=== PATIENT | female | born 1955 | race Caucasian/White ===

== ENCOUNTER 2021-01-22 11:23 | Observation (INO) ==
[2021-01-22] MEDS ORDERED: ONDANSETRON 4 MG/2 ML VIAL IV STA (11:42)
[2021-01-22] MEDS ORDERED: SODIUM CHLORIDE 0.9% 1,000 ML IV STA (11:42)
[2021-01-22 13:05] LABS: Basophils % 0.2 % (0.0-0.8); Eosinophils % 0.2 % (0.00-10.9); Immature Granulocytes % 0.4 %; Immature Granulocytes Absolute 0.05 #; Lymphocytes # 1.1 10*3/uL (1.4-4.0); Lymphocytes % 8.6 % (21.3-54.2); Mean Corpuscular HGB Conc 34.8 GM/DL (32-36); Mean Corpuscular Volume 93.1 FL (87-102); Mean Platelet Volume 9.3 FL (9.6-12.0); Monocytes % 6.5 % (1.7-12.7); Neutrophils % 84.1 % (38.7-73.9); Platelet Count 326 T/CUMM (130-400); Red Blood Count 4.94 MC/CUMM (3.8-5.5); Red Cell Distribution Width 13.8 % (9.3-17.3); White Blood Count 13.2 T/CUMM (4-12)
[2021-01-22 13:12] LABS: Bilirubin,Urine Negative (Negative); Blood, Urine Negative (Negative); Glucose,Urine (UA) Negative (Negative); Ketones,Urine Negative (Negative); Nitrite,Urine Negative (Negative); Protein,Urine Negative; RBC,Urine 1 /HPF (0-4); Squamous Epithelial Cell,Urine Occasional /HPF (0-10); Urine Appearance CLEAR (Clear); Urine Color Straw (Yellow); Urine Specific Gravity 1.006 (1.001-1.035); Urine Urobilinogen < 2.0 EU/DL (0.2-1.0)
[2021-01-22 13:23] LABS: Albumin 3.5 G/DL (3.4-5.0); Bilirubin,Total 0.6 MG/DL (0.20-1.00); Calcium 9.3 MG/DL (8.5-10.1); Osmolality,Calculated 264.2 MOS/KG (273-304); Potassium 2.9 MMOL/L (3.5-5.1)
[2021-01-22] MEDS ORDERED: HYDROmorphone 2 MG/1 ML VIAL IV STA ×2 (13:25→13:33)
[2021-01-22] MEDS ORDERED: PIPERACILLIN/TAZOBACTAM 3,375 MG in SODIUM CHLORIDE 0.9% 100 ML IV STA (13:33)
[2021-01-22] MEDS ORDERED: BISACODYL 5 MG TABLET PO PRN (13:50)
[2021-01-22] MEDS ORDERED: HYDROmorphone 2 MG/1 ML VIAL IV PRN ×2 (13:50)
[2021-01-22] MEDS ORDERED: ACETAMINOPHEN 325 MG TABLET PO PRN (13:50)
[2021-01-22] MEDS ORDERED: KETOROLAC 15 MG/1 ML VIAL IV PRN (13:50)
[2021-01-22] MEDS ORDERED: ONDANSETRON 4 MG/2 ML VIAL IV PRN (13:50)
[2021-01-22] MEDS ORDERED: ALBUTEROL/IPRATROPIUM 3 ML NEB RESP TX PRN (13:50)
[2021-01-22] MEDS ORDERED: LIDOCAINE 1%/EPI INJ 20 ML VIAL ONE (14:11)
[2021-01-22] MEDS ORDERED: TISSUE ADHESIVE 1 EACH APPLICATOR TOP ONE (14:11)
[2021-01-22] MEDS ORDERED: BUPIVACAINE MPF 0.25% 30 ML VIAL ONE (14:11)
[2021-01-22] MEDS ORDERED: fentaNYL 100 MCG/2 ML VIAL ONE (14:20)
[2021-01-22] MEDS ORDERED: propofoL 200 MG/20 ML VIAL IV ONE (14:21)
[2021-01-22] MEDS ORDERED: MIDAZOLAM 2 MG/2 ML VIAL ONE (14:21)
[2021-01-22] MEDS ORDERED: ROCURONIUM 50 MG/5 ML VIAL IV ONE (14:21)
[2021-01-22] MEDS ORDERED: SUCCINYLCHOLINE 200 MG/10 ML VIAL ONE (14:21)
[2021-01-22] MEDS ORDERED: LIDOCAINE 2% 5 ML VIAL ONE (14:21)
[2021-01-22] MEDS ORDERED: PHENYLEPHRINE 1 MG/10 ML SYRINGE IV ONE (14:52)
[2021-01-22] MEDS ORDERED: GLYCOPYRROLATE 0.4 MG/2 ML VIAL ONE (15:16)
[2021-01-22] MEDS ORDERED: LACTATED RINGERS 1,000 ML IV ONE (15:20)
[2021-01-22] MEDS ORDERED: NEOSTIGMINE 10 MG/10 ML VIAL ONE (15:31)
[2021-01-22] MEDS: HYDROmorphone 2 MG/1 ML VIAL IV PRN ×2 (15:53→16:00)
[2021-01-22] MEDS: LACTATED RINGERS 1,000 ML IV SCH ×2 (17:47→23:10)
[2021-01-22] MEDS: ALBUTEROL/IPRATROPIUM 3 ML NEB RESP TX SCH (19:32)
[2021-01-22] MEDS: PIPERACILLIN/TAZOBACTAM 3,375 MG in SODIUM CHLORIDE 0.9% 100 ML IV SCH (21:32)
[2021-01-22] MEDS: KETOROLAC 15 MG/1 ML VIAL IV PRN (21:32)
[2021-01-23] MEDS: ALBUTEROL/IPRATROPIUM 3 ML NEB RESP TX SCH ×2 (00:15→06:51)
[2021-01-23] MEDS: POTASSIUM CHLORIDE RIDER 10 MEQ/100 ML PREMIX IV PRN ×4 (00:55→04:56)
[2021-01-23] MEDS: KETOROLAC 15 MG/1 ML VIAL IV PRN (03:35)
[2021-01-23] MEDS: PIPERACILLIN/TAZOBACTAM 3,375 MG in SODIUM CHLORIDE 0.9% 100 ML IV SCH (06:12)
[2021-01-23] MEDS: LACTATED RINGERS 1,000 ML IV SCH (06:15)
[2021-01-23] MEDS ORDERED: CITALOPRAM 20 MG TABLET PO SCH (09:00)
[2021-01-23] MEDS ORDERED: PANTOPRAZOLE 40 MG TABLET PO SCH (09:00)
[2021-01-23] MEDS ORDERED: Fluticasone-Umeclidin-Vilanter [Trelegy Ellipta] 100-62.5-25 mcg INH SCH (09:00)
[2021-01-23] MEDS ORDERED: TRIAMTERENE/HCTZ 75-50 MG TABLET PO SCH ×2 (09:00)
[2021-01-23] MEDS ORDERED: NON-FORMULARY MEDICATION (Fluticasone-Umeclidin-Vilanter [Trelegy Ellipta] 100-62.5-25 mcg INH SCH (09:00)
[2021-01-23] MEDS ORDERED: NON-FORMULARY MEDICATION (Citalopram 10 mg tablet) PO SCH (09:00)
[2021-01-23] MEDS ORDERED: POTASSIUM CHLORIDE 20 MEQ TABLET PO ONE (10:00)
[2021-01-23 11:27] VITALS: BP 100/54
== END 2021-01-23 13:05 | disposition home or self-care (01) ==
LOC: N.ED 11:23 → N.EDINP 11:23 → N.3E 14:41 → N.ED 14:45 → N.3E 17:00
PROVIDERS: ADMIT Surgery; ATTEND Surgery

== ENCOUNTER 2022-07-16 10:41 | Inpatient (IN) ==
[2022-07-16] MEDS ORDERED: methylPREDNISolone SOD SUC 125 MG/2 ML VIAL IV STA (11:22)
[2022-07-16] MEDS ORDERED: ALBUTEROL NEB SOLN 5 MG/ML 20 ML/BOTTLE CONT NEB SCH (11:30)
[2022-07-16] MEDS ORDERED: ALBUTEROL 2.5 MG/3 ML NEB RESP TX ONE (11:52)
[2022-07-16 11:59] LABS: Basophils # 0.1 10*3/uL (0.0-0.2); Basophils % 0.4 % (0.0-0.8); Eosinophils # 0.1 10*3/uL (0.0-0.87); Eosinophils % 0.8 % (0.00-10.9); Hematocrit 42.5 VOL% (35.7-47.0); Hemoglobin 14.6 GM/DL (12.0-16.0); Immature Granulocytes % 0.3 %; Immature Granulocytes Absolute 0.04 #; Lymphocytes # 0.8 10*3/uL (1.4-4.0); Lymphocytes % 6.3 % (21.3-54.2); Mean Corpuscular HGB Conc 34.4 GM/DL (32-36); Mean Platelet Volume 8.9 FL (9.6-12.0); Monocytes # 0.6 10*3/uL (0.11-0.8); Monocytes % 4.7 % (1.7-12.7); Neutrophils % 87.5 % (38.7-73.9); Platelet Count 325 T/CUMM (130-400); Red Blood Count 4.57 MC/CUMM (3.8-5.5); Red Cell Distribution Width 12.3 % (9.3-17.3); White Blood Count 12.8 T/CUMM (4-12)
[2022-07-16 12:09] LABS: INR 0.9; PT Patient Result 10.3 SECS (10.1-12.1); Partial Thromboplastin Time 27.5 SECS (23.7-32.9)
[2022-07-16 12:26] LABS: Albumin 3.1 G/DL (3.4-5.0); Bilirubin,Total 0.5 MG/DL (0.20-1.00); Calcium 9.6 MG/DL (8.5-10.1); Osmolality,Calculated 272.8 MOS/KG (273-304); Potassium 3.9 MMOL/L (3.5-5.1); Total Protein 6.7 G/DL (6.4-8.2)
[2022-07-16] MEDS ORDERED: ACETAMINOPHEN 325 MG TABLET PO PRN (14:21)
[2022-07-16] MEDS ORDERED: ALUMINUM/MAGNES/SIMETH MAX STR 30 ML UDCUP PO PRN (14:21)
[2022-07-16] MEDS ORDERED: ONDANSETRON 4 MG/2 ML VIAL IV PRN (14:21)
[2022-07-16] MEDS ORDERED: SIMETHICONE CHEW 125 MG TABLET PO PRN (14:21)
[2022-07-16] MEDS ORDERED: LACTULOSE 20 GM/30 ML UDCUP PO PRN (14:21)
[2022-07-16] MEDS ORDERED: CALCIUM CARBONATE CHEW 500 MG TABLET PO PRN (14:21)
[2022-07-16] MEDS ORDERED: ALBUTEROL 2.5 MG/3 ML NEB RESP TX PRN (14:21)
[2022-07-16] MEDS ORDERED: SODIUM CHLORIDE 0.9% 1,000 ML IV STA (14:51)
[2022-07-16] MEDS ORDERED: SODIUM CHLORIDE 0.9% 500 ML IV STA (14:53)
[2022-07-16] MEDS: SODIUM CHLORIDE 0.9% 1,000 ML IV SCH (15:30)
[2022-07-16] MEDS: methylPREDNISolone SOD SUC 125 MG/2 ML VIAL IV SCH (17:29)
[2022-07-16] MEDS: DOXYCYCLINE HYCLATE INJ 100 MG in SODIUM CHLORIDE 0.9% 100 ML IV SCH (17:29)
[2022-07-16] MEDS: ALBUTEROL/IPRATROPIUM 3 ML NEB RESP TX SCH (19:30)
[2022-07-17 00:58] LABS: Hematocrit 38.6 VOL% (35.7-47.0); Hemoglobin 13.3 GM/DL (12.0-16.0); Immature Granulocytes % 0.4 %; Immature Granulocytes Absolute 0.02 #; Lymphocytes # 0.3 10*3/uL (1.4-4.0); Mean Corpuscular HGB Conc 34.5 GM/DL (32-36); Mean Platelet Volume 9.1 FL (9.6-12.0); Monocytes % 0.7 % (1.7-12.7); Neutrophils % 93.9 % (38.7-73.9); Platelet Count 321 T/CUMM (130-400); Red Blood Count 4.15 MC/CUMM (3.8-5.5); Red Cell Distribution Width 12.5 % (9.3-17.3); White Blood Count 5.4 T/CUMM (4-12)
[2022-07-17 01:07] LABS: RBC,Urine 1 /HPF (0-4); Squamous Epithelial Cell,Urine Occasional /HPF (0-10)
[2022-07-17 01:15] LABS: Bilirubin,Urine Negative (Negative); Blood, Urine Negative (Negative); Glucose,Urine (UA) 500 mg/dL (Negative); Ketones,Urine Trace mg/dL (Negative); Nitrite,Urine Negative (Negative); Protein,Urine Negative (Negative); Urine Appearance Clear (Clear); Urine Color Yellow (Yellow); Urine Specific Gravity <= 1.005 (1.001-1.035); Urine Urobilinogen 0.2 eU/dL (<2.0)
[2022-07-17] MEDS: ALBUTEROL/IPRATROPIUM 3 ML NEB RESP TX SCH ×4 (01:16→19:20)
[2022-07-17 01:29] LABS: Calcium 8.5 MG/DL (8.5-10.1); Potassium 3.9 MMOL/L (3.5-5.1); Thyroid Stimulating Hormone 0.558 uIU/ml (0.358-3.74)
[2022-07-17 01:34] LABS: Lymphocytes 2 % (20-55); Total Cells Counted 100
[2022-07-17 01:35] LABS: Giant Platelets Few; Platelet Estimate Normal
[2022-07-17] MEDS: methylPREDNISolone SOD SUC 125 MG/2 ML VIAL IV SCH ×3 (02:22→17:17)
[2022-07-17] MEDS: DOXYCYCLINE HYCLATE INJ 100 MG in SODIUM CHLORIDE 0.9% 100 ML IV SCH ×2 (05:43→17:17)
[2022-07-17] MEDS ORDERED: MAGNESIUM SULF RIDER 2 GM/50 ML PREMIX IV ONE (10:00)
[2022-07-17] MEDS: NON-FORMULARY MEDICATION (Fluticasone-Umeclidin-Vilanter [Trelegy Ellipta] 100-62.5-25 mcg INH SCH (13:07)
[2022-07-17] MEDS: SODIUM CHLORIDE 0.9% 1,000 ML IV SCH (13:08)
[2022-07-17] MEDS: CITALOPRAM 20 MG TABLET PO SCH (14:00)
[2022-07-17] MEDS: PANTOPRAZOLE 40 MG TABLET PO SCH (14:00)
[2022-07-18] MEDS: ALBUTEROL/IPRATROPIUM 3 ML NEB RESP TX SCH ×4 (00:10→19:00)
[2022-07-18] MEDS: methylPREDNISolone SOD SUC 125 MG/2 ML VIAL IV SCH ×3 (02:22→18:14)
[2022-07-18] MEDS: SODIUM CHLORIDE 0.9% 1,000 ML IV SCH ×2 (04:53→18:13)
[2022-07-18 05:39] LABS: Basophils % 0.1 % (0.0-0.8); Hematocrit 38.9 VOL% (35.7-47.0); Hemoglobin 13.2 GM/DL (12.0-16.0); Immature Granulocytes % 0.7 %; Lymphocytes # 0.4 10*3/uL (1.4-4.0); Lymphocytes % 2.6 % (21.3-54.2); Mean Corpuscular HGB Conc 33.9 GM/DL (32-36); Mean Corpuscular Volume 93.5 FL (87-102); Mean Platelet Volume 9.5 FL (9.6-12.0); Monocytes # 0.4 10*3/uL (0.11-0.8); Monocytes % 2.3 % (1.7-12.7); Neutrophils % 94.3 % (38.7-73.9); Platelet Count 337 T/CUMM (130-400); Red Blood Count 4.16 MC/CUMM (3.8-5.5); Red Cell Distribution Width 12.6 % (9.3-17.3); White Blood Count 15.1 T/CUMM (4-12)
[2022-07-18] MEDS: DOXYCYCLINE HYCLATE INJ 100 MG in SODIUM CHLORIDE 0.9% 100 ML IV SCH ×2 (05:46→18:14)
[2022-07-18 06:16] LABS: Calcium 8.7 MG/DL (8.5-10.1); Osmolality,Calculated 283.1 MOS/KG (273-304); Potassium 3.7 MMOL/L (3.5-5.1)
[2022-07-18 06:45] LABS: Lymphocytes 1 % (20-55); Total Cells Counted 100
[2022-07-18 06:46] LABS: Anisocytosis Slight; Giant Platelets Few; Platelet Estimate Normal
[2022-07-18] MEDS: PANTOPRAZOLE 40 MG TABLET PO SCH (08:48)
[2022-07-18] MEDS: CITALOPRAM 20 MG TABLET PO SCH (08:48)
[2022-07-18] MEDS: NON-FORMULARY MEDICATION (Fluticasone-Umeclidin-Vilanter [Trelegy Ellipta] 100-62.5-25 mcg INH SCH (08:49)
[2022-07-18] MEDS ORDERED: NICOTINE 21 MG/24 HR PATCH TRANSDERM PRN (12:21)
[2022-07-18] MEDS: guaiFENesin/DM ER 600-30 MG TABLET PO SCH ×2 (15:05→21:33)
[2022-07-18] MEDS: ENOXAPARIN 40 MG/0.4 ML SYRINGE SUBCUT SCH (15:05)
[2022-07-19] MEDS: ALBUTEROL/IPRATROPIUM 3 ML NEB RESP TX SCH ×4 (00:10→19:00)
[2022-07-19] MEDS: methylPREDNISolone SOD SUC 125 MG/2 ML VIAL IV SCH ×3 (03:07→17:18)
[2022-07-19 05:10] LABS: Basophils % 0.1 % (0.0-0.8); Hematocrit 36.4 VOL% (35.7-47.0); Hemoglobin 12.4 GM/DL (12.0-16.0); Immature Granulocytes % 0.8 %; Immature Granulocytes Absolute 0.13 #; Lymphocytes # 0.4 10*3/uL (1.4-4.0); Lymphocytes % 2.5 % (21.3-54.2); Mean Corpuscular HGB Conc 34.1 GM/DL (32-36); Mean Corpuscular Volume 94.5 FL (87-102); Mean Platelet Volume 9.5 FL (9.6-12.0); Monocytes # 0.5 10*3/uL (0.11-0.8); Monocytes % 2.8 % (1.7-12.7); Neutrophils % 93.8 % (38.7-73.9); Platelet Count 339 T/CUMM (130-400); Red Blood Count 3.85 MC/CUMM (3.8-5.5); Red Cell Distribution Width 12.8 % (9.3-17.3); White Blood Count 16.2 T/CUMM (4-12)
[2022-07-19 05:26] LABS: Calcium 8.2 MG/DL (8.5-10.1); Osmolality,Calculated 282.3 MOS/KG (273-304); Potassium 3.4 MMOL/L (3.5-5.1)
[2022-07-19 05:42] LABS: Platelet Estimate Normal; Total Cells Counted 100
[2022-07-19] MEDS: DOXYCYCLINE HYCLATE INJ 100 MG in SODIUM CHLORIDE 0.9% 100 ML IV SCH ×2 (06:01→16:17)
[2022-07-19] MEDS: PANTOPRAZOLE 40 MG TABLET PO SCH (08:11)
[2022-07-19] MEDS: SODIUM CHLORIDE 0.9% 1,000 ML IV SCH ×2 (08:11→17:17)
[2022-07-19] MEDS: CITALOPRAM 20 MG TABLET PO SCH (08:11)
[2022-07-19] MEDS: NON-FORMULARY MEDICATION (Fluticasone-Umeclidin-Vilanter [Trelegy Ellipta] 100-62.5-25 mcg INH SCH (08:12)
[2022-07-19] MEDS: guaiFENesin/DM ER 600-30 MG TABLET PO SCH (08:12)
[2022-07-19] MEDS ORDERED: guaiFENesin/DM ER 600-30 MG TABLET PO PRN (08:14)
[2022-07-19] MEDS: ENOXAPARIN 40 MG/0.4 ML SYRINGE SUBCUT SCH (16:18)
[2022-07-19] MEDS ORDERED: ZALEPLON 5 MG CAPSULE PO PRN (18:21)
[2022-07-20] MEDS: ALBUTEROL/IPRATROPIUM 3 ML NEB RESP TX SCH ×4 (00:32→19:05)
[2022-07-20] MEDS: SODIUM CHLORIDE 0.9% 1,000 ML IV SCH (01:20)
[2022-07-20] MEDS: methylPREDNISolone SOD SUC 125 MG/2 ML VIAL IV SCH ×3 (01:24→17:33)
[2022-07-20] MEDS: DOXYCYCLINE HYCLATE INJ 100 MG in SODIUM CHLORIDE 0.9% 100 ML IV SCH (04:09)
[2022-07-20 05:56] LABS: Basophils % 0.1 % (0.0-0.8); Hematocrit 49.7 VOL% (35.7-47.0); Hemoglobin 16.3 GM/DL (12.0-16.0); Immature Granulocytes % 0.9 %; Immature Granulocytes Absolute 0.11 #; Lymphocytes # 0.3 10*3/uL (1.4-4.0); Mean Corpuscular HGB Conc 32.8 GM/DL (32-36); Mean Corpuscular Volume 97.3 FL (87-102); Mean Platelet Volume 10.8 FL (9.6-12.0); Monocytes # 0.3 10*3/uL (0.11-0.8); Monocytes % 2.6 % (1.7-12.7); Neutrophils % 94.4 % (38.7-73.9); Platelet Count 178 T/CUMM (130-400); Red Blood Count 5.11 MC/CUMM (3.8-5.5); Red Cell Distribution Width 13.1 % (9.3-17.3); White Blood Count 12.8 T/CUMM (4-12)
[2022-07-20 06:19] LABS: Calcium 8.7 MG/DL (8.5-10.1); Osmolality,Calculated 277.5 MOS/KG (273-304); Potassium 3.9 MMOL/L (3.5-5.1)
[2022-07-20 06:23] LABS: Anisocytosis 1+; Lymphocytes 2 % (20-55); Total Cells Counted 100
[2022-07-20] MEDS ORDERED: PROMETHAZINE 25 MG/1 ML VIAL IM ONE (07:00)
[2022-07-20] MEDS ORDERED: MEPERIDINE 50 MG/1 ML VIAL IM ONE ×2 (07:00→22:00)
[2022-07-20] MEDS ORDERED: MIDAZOLAM 2 MG/2 ML VIAL IV ONE (07:30)
[2022-07-20] MEDS ORDERED: LIDOCAINE 1% 20 ML VIAL MISC INJ ONE (07:30)
[2022-07-20] MEDS ORDERED: LIDOCAINE 2% 20 ML VIAL RESP TX ONE (07:30)
[2022-07-20] MEDS ORDERED: LIDOCAINE 2% VISCOUS 100 ML BOTTLE SWISH/SPIT ONE (07:30)
[2022-07-20] MEDS ORDERED: FUROSEMIDE 40 MG/4 ML VIAL IV ONE (08:50)
[2022-07-20] MEDS: PANTOPRAZOLE 40 MG TABLET PO SCH (10:46)
[2022-07-20] MEDS: CITALOPRAM 20 MG TABLET PO SCH (10:46)
[2022-07-20] MEDS: NON-FORMULARY MEDICATION (Fluticasone-Umeclidin-Vilanter [Trelegy Ellipta] 100-62.5-25 mcg INH SCH (10:47)
[2022-07-20] MEDS: AZITHROMYCIN INJ 500 MG in SODIUM CHLORIDE 0.9% 250 ML IV SCH (17:15)
[2022-07-20] MEDS: cefTRIAXone 2,000 MG in SODIUM CHLORIDE 0.9% 100 ML IV SCH (17:15)
[2022-07-20] MEDS: ENOXAPARIN 40 MG/0.4 ML SYRINGE SUBCUT SCH (20:28)
[2022-07-21] MEDS: ALBUTEROL/IPRATROPIUM 3 ML NEB RESP TX SCH ×4 (00:20→19:10)
[2022-07-21] MEDS: methylPREDNISolone SOD SUC 125 MG/2 ML VIAL IV SCH ×3 (01:30→17:51)
[2022-07-21 05:32] LABS: Basophils % 0.1 % (0.0-0.8); Hematocrit 38.4 VOL% (35.7-47.0); Immature Granulocytes Absolute 0.08 #; Lymphocytes # 0.4 10*3/uL (1.4-4.0); Lymphocytes % 4.4 % (21.3-54.2); Mean Corpuscular HGB Conc 33.9 GM/DL (32-36); Mean Corpuscular Volume 94.6 FL (87-102); Mean Platelet Volume 9.7 FL (9.6-12.0); Monocytes # 0.3 10*3/uL (0.11-0.8); Neutrophils % 90.5 % (38.7-73.9); Platelet Count 329 T/CUMM (130-400); Red Blood Count 4.06 MC/CUMM (3.8-5.5); Red Cell Distribution Width 12.8 % (9.3-17.3)
[2022-07-21 05:50] LABS: Calcium 8.8 MG/DL (8.5-10.1); Osmolality,Calculated 279.5 MOS/KG (273-304); Potassium 3.5 MMOL/L (3.5-5.1)
[2022-07-21 05:57] LABS: Lymphocytes 7 % (20-55); Total Cells Counted 100
[2022-07-21 05:58] LABS: Anisocytosis Slight; Platelet Estimate Normal
[2022-07-21] MEDS ORDERED: LIDOCAINE 1% 20 ML VIAL MISC INJ ONE (07:00)
[2022-07-21] MEDS ORDERED: LIDOCAINE 2% 20 ML VIAL RESP TX ONE (07:00)
[2022-07-21] MEDS ORDERED: LIDOCAINE 2% VISCOUS 100 ML BOTTLE SWISH/SPIT ONE (07:00)
[2022-07-21] MEDS ORDERED: MIDAZOLAM 2 MG/2 ML VIAL IV ONE (07:30)
[2022-07-21] MEDS ORDERED: MIDAZOLAM 2 MG/2 ML VIAL ONE (07:31)
[2022-07-21] MEDS: NON-FORMULARY MEDICATION (Fluticasone-Umeclidin-Vilanter [Trelegy Ellipta] 100-62.5-25 mcg INH SCH (09:48)
[2022-07-21] MEDS: PANTOPRAZOLE 40 MG TABLET PO SCH (09:48)
[2022-07-21] MEDS: cefTRIAXone 2,000 MG in SODIUM CHLORIDE 0.9% 100 ML IV SCH (14:54)
[2022-07-21] MEDS: AZITHROMYCIN INJ 500 MG in SODIUM CHLORIDE 0.9% 250 ML IV SCH (16:11)
[2022-07-21] MEDS ORDERED: buPROPion SR 100 MG TABLET PO ONE (16:53)
[2022-07-21] MEDS: ENOXAPARIN 40 MG/0.4 ML SYRINGE SUBCUT SCH (20:57)
[2022-07-22] MEDS: ALBUTEROL/IPRATROPIUM 3 ML NEB RESP TX SCH ×4 (00:15→19:04)
[2022-07-22] MEDS: methylPREDNISolone SOD SUC 125 MG/2 ML VIAL IV SCH ×2 (01:00→09:02)
[2022-07-22] MEDS ORDERED: FUROSEMIDE 40 MG/4 ML VIAL IV ONE (07:35)
[2022-07-22] MEDS: PANTOPRAZOLE 40 MG TABLET PO SCH (09:00)
[2022-07-22] MEDS: buPROPion SR 100 MG TABLET PO SCH (09:01)
[2022-07-22] MEDS: NON-FORMULARY MEDICATION (Fluticasone-Umeclidin-Vilanter [Trelegy Ellipta] 100-62.5-25 mcg INH SCH (09:03)
[2022-07-22] MEDS: cefTRIAXone 2,000 MG in SODIUM CHLORIDE 0.9% 100 ML IV SCH (09:03)
[2022-07-22] MEDS: methylPREDNISolone SOD SUC 40 MG/1 ML VIAL IV SCH ×2 (09:09→16:04)
[2022-07-22] MEDS: AZITHROMYCIN INJ 500 MG in SODIUM CHLORIDE 0.9% 250 ML IV SCH (09:09)
[2022-07-22] MEDS ORDERED: NON-FORMULARY MEDICATION (Cholecalciferol (Vitamin D3) 1,250 mcg (50,000 unit) capsule) PO SCH (14:49)
[2022-07-22] MEDS: ENOXAPARIN 40 MG/0.4 ML SYRINGE SUBCUT SCH (20:05)
[2022-07-23] MEDS: ALBUTEROL/IPRATROPIUM 3 ML NEB RESP TX SCH ×4 (01:04→19:16)
[2022-07-23] MEDS: methylPREDNISolone SOD SUC 40 MG/1 ML VIAL IV SCH ×3 (01:36→17:18)
[2022-07-23] MEDS: AZITHROMYCIN 250 MG TABLET PO SCH (08:17)
[2022-07-23] MEDS: NON-FORMULARY MEDICATION (Fluticasone-Umeclidin-Vilanter [Trelegy Ellipta] 100-62.5-25 mcg INH SCH (08:18)
[2022-07-23] MEDS: PANTOPRAZOLE 40 MG TABLET PO SCH (08:18)
[2022-07-23] MEDS: buPROPion SR 100 MG TABLET PO SCH (08:18)
[2022-07-23] MEDS: cefTRIAXone 2,000 MG in SODIUM CHLORIDE 0.9% 100 ML IV SCH (08:21)
[2022-07-23 18:50] LABS: M. Tuberculosis PCR Result Negative (Negative); M. Tuberculosis PCR Source BRONCH WASH
[2022-07-23] MEDS: ENOXAPARIN 40 MG/0.4 ML SYRINGE SUBCUT SCH (21:24)
[2022-07-24] MEDS: ALBUTEROL/IPRATROPIUM 3 ML NEB RESP TX SCH ×2 (00:43→07:48)
[2022-07-24] MEDS: methylPREDNISolone SOD SUC 40 MG/1 ML VIAL IV SCH (03:30)
[2022-07-24] MEDS ORDERED: predniSONE 20 MG TABLET PO SCH (09:00)
[2022-07-24] MEDS: PANTOPRAZOLE 40 MG TABLET PO SCH (09:05)
[2022-07-24] MEDS: NON-FORMULARY MEDICATION (Fluticasone-Umeclidin-Vilanter [Trelegy Ellipta] 100-62.5-25 mcg INH SCH (09:05)
[2022-07-24] MEDS: AZITHROMYCIN 250 MG TABLET PO SCH (09:05)
[2022-07-24] MEDS: buPROPion SR 100 MG TABLET PO SCH (09:06)
[2022-07-24] MEDS: cefTRIAXone 2,000 MG in SODIUM CHLORIDE 0.9% 100 ML IV SCH (09:09)
[2022-07-24 12:00] VITALS: BP 109/60
== END 2022-07-24 12:54 | disposition home or self-care (01) | DRG 191 ==
LOC: N.ED 10:41 → N.2W 10:41 → OBSVTOIN 14:21 → SUATTDRO 14:21 → INTOOBSV 14:21 → N.2W 16:58 → SUATTDRO 07-17 10:11 → N.2E 07-17 17:43
PROVIDERS: ADMIT Internal Medicine; ATTEND Emergency Medicine